=== PATIENT | male | born 1945 | race Caucasian/White ===

== ENCOUNTER 2024-07-03 07:45 | Outpatient (CLI) | payer MEDICARE, SELFPAY ==
--- NOTE | 2024-07-18 12:37 | P.SLEEP_ITS ---
Sleep Study Date of Study: 07/03/24 Ordering Provider: Alicia Osborn MD Interpreting Physician: Alicia Osborn MD Sleep Study Type: Polysomnogram Height: 1.93 m Weight: 102.058 kg Body Mass Index: 27.3 Neck Circumference (inches): 17 [place]: 11 Reason for Sleep Study Hypersomnolence Sleep History Camilo Elaine is a 79-year-old man with sudden onset of hypersomnolence in addition to fatigue, lightheadedness, chest discomfort and pain to the left arm in the spring of this year. 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 He presents for more definitive testing f or his hypersomnolence. He occasionally awakens from sleep feeling short of breath. He rarely wakes at night with heartburn, belching or coughing.??He occasionally snores loudly enough that others complain. He frequently has trouble sleeping when he has a cold. He rarely wakes up gasping for breath during the night. He occasionally has breathing problems at night. He never sweats excessively at night. He never notices his heart pounding or beating irregularly during the night. He frequently falls asleep during the day. He frequently falls asleep involuntarily, frequently falls asleep while driving. He never experiences loss of muscle tone with strong emotion. He never has daytime difficulty at work due to excessive sleepiness, he is a hutson. He rarely feels paralyzed on waking or falling asleep. He rarely experiences vivid dreams upon waking or falling asleep. He never feels afraid of going to sleep. He never has nightmares. He never recalls his dreams. He rarely has thoughts racing through his mind. He rarely feels sad or depressed. He rarely feels anxiety. He rarely notices parts of his body jerk. He rarely kicks during the night. He never feels crawling or aching feelings in his legs. He never feels leg pain at night. He never has morning jaw pain, never grinds his teeth at night. He frequently feels bothered by pain during the day, occasionally awakened by pain during the night. He occasionally wakes up feeling stiff in the morning, and he occasional wakes feeling sore or achy. He rarely awakens with pain in his neck, spine, or joints. He has fatigue and memory problems. he reports no chagne in his weight in the last year. Normal bedtime is 9:00 p.m., falling asleep within 15 minutes, waking 3-5 times at night to urinate. Wake time is 6:00 a.m.. He typically gets 8 hours of sleep per night. He takes naps in the day, and feels refreshed after a short nap lasting 10-15 minutes. Habits:??Tobacco: Never smoker Caffeine: 3 cups per day Alcohol: occasional Recreational substances: none [facility] Past Medical History Medical History BMI 27.0-27.9,adult Hemorrhoids Surgical History Surgical History H/O knee surgery Dr. Lim, waiting on prior records Family History Family History Sibling Cancer Social History Social History Smoking status: Never smoker Alcohol intake: current Alcohol use details: occasional Living arrangements: with family Occupation/Education: retired Gender identity (if verbalized by the patient): Male Medications Home Medications Medication Instructions Recorded Confirmed Type acetaminophen 325 mg tablet 325 mg PO Q6H PRN 07/27/20 02/26/24 History (Tylenol) ibuprofen 200 mg tablet 200 mg PO Q6H PRN 07/27/20 02/26/24 History omeprazole 40 mg capsule,delayed 40 mg PO DAILY 07/27/20 02/26/24 History release tobramycin 0.3 % eye drops 1 drp RIGHT EYE Q4H 09/08/20 02/26/24 History alfuzosin 10 mg tablet,extended mg PO 02/26/24 02/26/24 History release 24 hr Sleep Procedure A full night polysomnogram using the [employer] multi-channel system recorded the standard physiologic parameters including EEG, EOG, submentalis EMG, anterior tibialis EMG, EKG, body position, nasal and oral airflow using nasal pressure sensor and thermistor. Respiratory parameters of chest and abdominal movements were recorded with Respiratory Inductance Plethysmography belts. Oxygen saturation was recorded by pulse oximetry. Video monitoring was also performed. Sleep stages, periodic limb movements, and EEG arousals were scored in 30 second epochs according to the criteria of the AASM Scoring Manual. The Apnea-Hypopnea Index was calculated using CMS guidelines for definition of hypopnea while scoring respiratory events. Sleep Architecture The total recording time was 497.5 minutes. The total sleep time was 224.0 minutes. Sleep latency was 12.9 minutes. REM latency was - minutes. Sleep efficiency was 45.0%. The patient had 32 awakenings for an awakening index of 8.6. Wake after sleep onset time was 260.5 minutes. The patient spent 37.0 minut es, 16.5% of total sleep time in Stage N1. The patient spent 174.5 minutes, 77.9% in Stage N2. The patient spent 12.5 minutes, 5.6% in Stage N3. The patient spent no time in Stage REM sleep. Respiratory Analysis The patient had 28 hypopneas, no obstructive, mixed apneas or central apneas for an overall Apnea Hypopnea Index of 7.5 using the [facility] 4% desaturation criteria. The REM Apnea Hypopnea Index was 0 as he had no REM. The NREM Apnea Hypopnea Index was 7.5. The patient had a Central Apnea Hypopnea Index of 0. There were no Respiratory Effort Related Arousals. The Respiratory Disturbance Index is 8.8 events per hour. There was no evidence of Raul-Ariza Respirations. Using AASM 3% desaturation criteria, his apnea hypopnea index was 9.6, still mildly elevated. Arousals There were 51 total arousals for an arousal index of 13.7. There were 33 spontaneous arousals for an index of 8.8. There were 7 arousals due to respiratory events for an index of 1.9. There were 4 arousals due to periodic limb movements for an index of 1.1. There were 8 arousals due to isolated limb movements for an index of 2.1. Periodic Limb Movements The patient had 29 isolated limb movements with an index of 7.8. The patient had 62 periodic limb movements with an index of 16.6. Patient had a total of 91 limb movements with a total limb movement index of 24.4. Oximetry Data The patient had an average oxygen saturation of 93.9% in sleep with a minimum oxygen saturation of 83% and a maximum oxygen saturation of 99%. The patient had 33 oxygen desaturations that were 4% or greater resulting in an Oxygen Desaturation Index of 8.8. The patient spent 3.3 minutes, 0.7% of total sleep time with an oxygen saturation below 88%. Snoring Profile Snoring was mild. Cardiac Profile EKG showed normal sinus rhythm, average pulse rate of 66.5 bpm with a minimum pulse of rate of 58 bpm and a maximum pulse rate of 88 bpm wiht scattered PVCs, no arrhythmias. EEG Profile Unremarkable, no evidence of seizures. Assessment and Plan Assessment and Plan (1) Obstructive sleep apnea: Code(s): G47.33 - Obstructive sleep apnea (adult) (pediatric) Status: Acute Assessment and Plan: This basic nocturnal polysomnogram on July 03, 2024 shows mild obstructive sleep apnea, the overall apnea-hypopnea index is 7.5 with desaturation 83% and mild snoring. The patient had fragmented sleep, sleep efficiency was severely decreased at 45%, normal sleep efficiency is 80%. Most of the night was spent awake. He had no REM. This study likely does not give a complete picture of the severity of his sleep problems as he had no REM, and he might have used his friend's PAP machine leading up until the night of this study. If he did use PAP leading up to this study, his AHI on this study is going to be lower than expected. PAP therapy can have residual benefits for up to 3 nights after stopping usage. He had increased periodic limb movements with an index of 16.6, normal is < 15 however these did not cause arousals. Recommendations: 1. Check ferritin level. He had periodic limb movement index 16.6 and a total limb movement index of 24.4, without arousals. It is possible that increased limb movements, even without arousals, are disruptive to his sleep. Ferritin level is indicated to exclude iron deficiency anemia as a contributing factor. Ferritin should be 75 ng/mL or greater. If ferritin is below this, iron supplementation should be given to achieve ferritin of 75 ng/mL. There are nonpharmacologic methods to treat limb movements including daily exercise, stretching calf muscles before bed, avoiding excessive amounts of caffeine and alcohol, vitamin B supplementation, magnesium lotion massaged into legs before bed, and use of a weighted blanket. 2. He has mild obstructive sleep apnea without medical comorbidity including hypertension or mood disorder. Insurance covers PAP therapy with mild obstructi ve sleep apnea with a comorbidity such as hypertension or a modd disorder. He has neither of these. He may still benefit from having his PAUL treated although Medicare will not cover the cost. 3. Sleep hygiene. He spent most of the night awake, 55% of the time. He keeps a regular sleep schedule however he naps too much in the day. He should avoid napping late in the day, especially after 3:00 p.m. 4. He had multiple trips to the bathroom during this sleep study. He did not have severe apnea that might be an explanation for these awakenings. Consider evaluation for prostate or bladder issues. Clinical follow up is recommended. Data The data obtained during this sleep study is adequate for interpretation. Certification This sleep study has been reviewed by a board certified sleep medicine physician.
[2024-07-18 12:39] VITALS: BMI 27.3
== END 2024-07-04 06:40 | disposition home or self-care (01) ==
LOC: ANHCSM 07:46
PROVIDERS: PCP Nurse Practitioner Family; Visit Provider Internal Medicine Critical Care Medicine
DX: G47.10 Hypersomnia, unspecified (principal); G47.33 Obstructive sleep apnea (adult) (pediatric)
CPT/HCPCS: 95810